=== PATIENT | female | born 1990 | race African-American/Black ===

== ENCOUNTER 2023-01-24 20:48 | Emergency (ER) | payer SELFPAY ==
[~2023-01-24] VITALS: Ht 167.6 cm; Wt 73.0 kg
[2023-01-24 20:58] VITALS: BP 136/88; PULSE 114; RESP 18; TEMP 98.4; O2SAT 98
[2023-01-25] MEDS ORDERED: MAGNESIUM/ALUMINUM HYDROXIDE/SIMETHICONE 30ML UDC PO STA (00:48)
[2023-01-25] MEDS ORDERED: ONDANSETRON 4MG ODT PO STA (00:48)
[2023-01-25] MEDS ORDERED: FAMOTIDINE 20MG TABLET PO ONE (01:00)
[2023-01-25] MEDS ORDERED: FAMOTIDINE 20MG/2ML VIAL IV ONE (03:00)
[2023-01-25] MEDS ORDERED: SODIUM CHLORIDE 0.9% 1,000 ML IV ONE (03:00)
[2023-01-25] MEDS ORDERED: LORAZEPAM 2MG/ML CPJ IV ONE (03:00)
[2023-01-25] MEDS ORDERED: ONDANSETRON HCL 4MG/2ML INJ IV ONE (03:00)
[2023-01-25 03:42] LABS: BASOPHILS % 0.7 % (0.0-2.0); EOSINOPHILS % 0.1 % (0.0-5.0); HEMATOCRIT. 32.6 % (36.0-48.0); HEMOGLOBIN. 10.9 g/dL (12.0-16.0); LYMPHOCYTES % 46.9 % (20.0-50.0); MEAN CORPUSCULAR HEMOGLOBIN 26.8 pg (28.0-32.0); MEAN CORPUSCULAR VOLUME 80.6 fL (81.0-99.0); MEAN PLATELET VOLUME 6.8 fl (7.4-10.4); MONOCYTES % 6.7 % (2.0-8.0); NEUTROPHILS % 45.6 % (40.0-76.0); PLATELET 374 x1000/uL (130-400); RED BLOOD CELL COUNT 4.05 mill/uL (4.2-5.4); RED CELL DISTRIBUTION WIDTH 16.6 % (11.6-14.6)
[2023-01-25 03:51] LABS: CHLORIDE 109 mEq/L (98-107)
[2023-01-25 04:05] LABS: HCG SCREEN NEGATIVE
[2023-01-25] MEDS ORDERED: PROT40 MT (07:01)
[2023-01-25] MEDS ORDERED: ONDA4TAB50 MT (07:01)
== END 2023-01-25 07:16 | disposition home or self-care (01) ==
LOC: ER 22:46
DX: R11.2 Nausea with vomiting, unspecified (principal); J45.909 Unspecified asthma, uncomplicated
CPT/HCPCS: 36415; 80053; 84703; 85025; 99283

== ENCOUNTER 2023-11-22 01:14 | Emergency (ER) | payer MEDICAID ==
[~2023-11-22] VITALS: Ht 162.6 cm; Wt 70.0 kg
[~2023-11-22 01:14] MED LIST: ONDA4TAB50 MT; PROT40 MT
[2023-11-22 01:24] VITALS: O2SAT 97
[2023-11-22] MEDS: ACETAMINOPHEN 325MG TABLET PO ONE (01:30)
[2023-11-22 02:41] LABS: CLARITY URINE CLEAR (CLEAR); COLOR URINE YELLOW (YELLOW); GLUCOSE URINE NEGATIVE (NEGATIVE); KETONES URINE NEGATIVE (NEGATIVE); LEUKOCYTE ESTERASE URINE NEGATIVE (NEGATIVE); NITRITE URINE NEGATIVE (NEGATIVE); OCCULT BLOOD URINE 3+ (NEGATIVE); PROTEIN URINE TRACE (NEGATIVE); SPECIFIC GRAVITY URINE 1.005 (1.005-1.030); UROBILINOGEN URINE 0.2 E.U./dL (0.2-1.0)
[2023-11-22 03:21] LABS: *AMPHETAMINES SCREEN URINE NEGATIVE (NEGATIVE); *BARBITURATES SCREEN URINE NEGATIVE (NEGATIVE); *BENZODIAZEPINES SCREEN URINE PRESUMPTIVE POSITIVE (NEGATIVE); *COCAINE SCREEN URINE NEGATIVE (NEGATIVE); CANNABINOID URINE SCREEN NEGATIVE (NEGATIVE); ECSTASY MDMA SCREEN URINE NEGATIVE (NEGATIVE); METHADONE URINE SCREEN NEGATIVE (NEGATIVE); OPIATES URINE SCREEN NEGATIVE (NEGATIVE); PHENCYCLIDINE URINE SCREEN NEGATIVE (NEGATIVE)
[2023-11-22 04:45] LABS: BASOPHILS % 0.2 % (0.0-2.0); EOSINOPHILS % 0.2 % (0.0-5.0); HEMATOCRIT. 40.1 % (36.0-48.0); HEMOGLOBIN. 13.2 g/dL (12.0-16.0); LYMPHOCYTES % 9.5 % (20.0-50.0); MEAN CORPUSCULAR HEMOGLOBIN 29.4 pg (28.0-32.0); MEAN CORPUSCULAR VOLUME 88.9 fL (81.0-99.0); MEAN PLATELET VOLUME 7.6 fl (7.4-10.4); MONOCYTES % 3.9 % (2.0-8.0); NEUTROPHILS % 86.2 % (40.0-76.0); PLATELET 371 x1000/uL (130-400); RED BLOOD CELL COUNT 4.51 mill/uL (4.2-5.4); RED CELL DISTRIBUTION WIDTH 16.4 % (11.6-14.6); WHITE BLOOD COUNT 9.3 x1000/uL (4.5-11.0)
[2023-11-22 04:50] LABS: CHLORIDE 107 mEq/L (98-107); POTASSIUM 4.4 mEq/L (3.5-5.1); SODIUM 144 mEq/L (136-145)
[2023-11-22 04:51] LABS: CALCIUM 9.7 mg/dL (8.7-10.4); CARBON DIOXIDE 25 mEq/L (21-32)
[2023-11-22 04:56] LABS: GLUCOSE 86 mg/dL (70-105); UREA NITROGEN BLOOD 7 mg/dL (9-23)
[2023-11-22 04:58] LABS: ACETAMINOPHEN < 2 ug/mL (10-30)
[2023-11-22 05:06] LABS: ETHANOL BLOOD 298 mg/dL (<10)
[2023-11-22 05:10] LABS: HCG SCREEN NEGATIVE
[2023-11-22 05:14] LABS: SQUAMOUS EPITHELIAL CELL URINE FEW /lpf (RARE/1+)
[2023-11-22 05:16] LABS: RBC URINE 0-2 /hpf (0-2); WBC URINE 0-2 /hpf (0-2)
[2023-11-22 05:17] LABS: BACTERIA URINE 1+
[2023-11-22] MEDS: LORAZEPAM 0.5MG TABLET PO NR (08:51)
[2023-11-22] MEDS ORDERED: MECL-264 PO (10:21)
[2023-11-22] MEDS ORDERED: BUDE6HFA INH (10:21)
[2023-11-22] MEDS ORDERED: NALT50TA5 PO (10:21)
[2023-11-22] MEDS ORDERED: FOLI-43 PO (10:21)
[2023-11-22] MEDS ORDERED: ALBU18HF2 PO (10:21)
[2023-11-22] MEDS: QUETIAPINE FUMARATE 25MG TABLET PO SCH (17:15)
[2023-11-22] MEDS ORDERED: QUINIDINE SULFATE 200 MG PO SCH (21:00)
[2023-11-22] MEDS: CHLORDIAZEPOXIDE 25MG CAPSULE PO NR (21:46)
[2023-11-23] MEDS: LORAZEPAM 1MG TABLET PO ONE (01:30)
[2023-11-23 11:50] VITALS: BP 108/76; PULSE 98; RESP 16; TEMP 98.7
== END 2023-11-23 12:16 ==
LOC: ER 01:14
DX: S00.83XA Contusion of other part of head, initial encounter (principal); F10.129 Alcohol abuse with intoxication, unspecified; R45.851 Suicidal ideations; F43.0 Acute stress reaction; J45.909 Unspecified asthma, uncomplicated; Z20.822 Contact with and (suspected) exposure to COVID-19; X58.XXXA Exposure to other specified factors, initial encounter; Y93.89 Activity, other specified; Y92.89 Other specified places as the place of occurrence of the external cause; Y99.8 Other external cause status
CPT/HCPCS: 80305; 80048; 81003; 80307; 80329; 80320; 84703; 85025; 36415; 70450; 99285; 87426; Z7610; G0480

== ENCOUNTER 2023-11-30 20:09 | Emergency (ER) | payer MEDICAID ==
[~2023-11-30] VITALS: Ht 162.6 cm; Wt 76.0 kg
[~2023-11-30 20:09] MED LIST changes: +ALBU18HF2 PO; +BUDE6HFA INH; +FOLI-43 PO; +MECL-264 PO; +NALT50TA5 PO; -PROT40 MT
[2023-11-30 20:24] VITALS: BP 100/73; PULSE 110; RESP 18; TEMP 98.4; O2SAT 97
== END 2023-11-30 20:20 | disposition left against medical advice (07) ==
LOC: ER 20:09
DX: F10.10 Alcohol abuse, uncomplicated (principal); Z53.21 Procedure and treatment not carried out due to patient leaving prior to being seen by health care provider; Y90.9 Presence of alcohol in blood, level not specified

== ENCOUNTER 2023-12-09 11:08 | Inpatient (IN) | payer MEDICAID ==
[~2023-12-09] VITALS: Ht 167.6 cm; Wt 72.6 kg
[2023-12-09] MEDS: DIAZEPAM 5 MG/ML 2ML SYR IV ONE (11:47)
[2023-12-09] MEDS: SODIUM CHLORIDE 0.9% 1,000 ML IV ONE ×2 (11:48→14:52)
[2023-12-09] MEDS: ONDANSETRON HCL 4MG/2ML INJ IV ONE (11:48)
[2023-12-09] MEDS: PANTOPRAZOLE SODIUM 40 MG/VIAL IV STA (11:49)
[2023-12-09 12:03] LABS: BASOPHILS % 0.6 % (0.0-2.0); EOSINOPHILS % 0.6 % (0.0-5.0); HEMATOCRIT. 35.3 % (36.0-48.0); HEMOGLOBIN. 11.8 g/dL (12.0-16.0); LYMPHOCYTES % 19.2 % (20.0-50.0); MEAN CORPUSCULAR HEMOGLOBIN 29.2 pg (28.0-32.0); MEAN CORPUSCULAR HGB CONC 33.4 g/dL (31.0-37.0); MEAN CORPUSCULAR VOLUME 87.5 fL (81.0-99.0); MEAN PLATELET VOLUME 7.7 fl (7.4-10.4); MONOCYTES % 10.8 % (2.0-8.0); NEUTROPHILS % 68.8 % (40.0-76.0); PLATELET 220 x1000/uL (130-400); RED BLOOD CELL COUNT 4.04 mill/uL (4.2-5.4); RED CELL DISTRIBUTION WIDTH 17.3 % (11.6-14.6); WHITE BLOOD COUNT 3.9 x1000/uL (4.5-11.0)
[2023-12-09 12:09] LABS: CHLORIDE 100 mEq/L (98-107)
[2023-12-09 12:10] LABS: CALCIUM 9.7 mg/dL (8.7-10.4); CARBON DIOXIDE 28 mEq/L (21-32); POTASSIUM 3.5 mEq/L (3.5-5.1); SODIUM 141 mEq/L (136-145)
[2023-12-09 12:15] LABS: CREATININE 0.8 mg/dL (0.6-1.0); ETHANOL BLOOD < 10 mg/dL (<10); GLUCOSE 93 mg/dL (70-105); UREA NITROGEN BLOOD 11 mg/dL (9-23)
[2023-12-09 12:53] LABS: PROTHROMBIN TIME 11.4 sec (9.6-11.0)
[2023-12-09] MEDS: LORAZEPAM 2MG/ML INJ IV ONE (14:24)
[2023-12-09] MEDS: ONDANSETRON HCL 4MG/2ML INJ IV NR (14:52)
[2023-12-09 16:56] LABS: CLARITY URINE TURBID (CLEAR); COLOR URINE DARK YELLOW (YELLOW); GLUCOSE URINE NEGATIVE (NEGATIVE); KETONES URINE 2+ (NEGATIVE); LEUKOCYTE ESTERASE URINE TRACE (NEGATIVE); NITRITE URINE NEGATIVE (NEGATIVE); OCCULT BLOOD URINE NEGATIVE (NEGATIVE); PROTEIN URINE 1+ (NEGATIVE); SPECIFIC GRAVITY URINE 1.028 (1.005-1.030)
[2023-12-09 17:06] LABS: *AMPHETAMINES SCREEN URINE NEGATIVE (NEGATIVE); *BARBITURATES SCREEN URINE NEGATIVE (NEGATIVE); *BENZODIAZEPINES SCREEN URINE PRESUMPTIVE POSITIVE (NEGATIVE); *COCAINE SCREEN URINE NEGATIVE (NEGATIVE); CANNABINOID URINE SCREEN NEGATIVE (NEGATIVE); ECSTASY MDMA SCREEN URINE NEGATIVE (NEGATIVE); METHADONE URINE SCREEN NEGATIVE (NEGATIVE); OPIATES URINE SCREEN NEGATIVE (NEGATIVE); PHENCYCLIDINE URINE SCREEN NEGATIVE (NEGATIVE)
[2023-12-09 17:12] LABS: BACTERIA URINE 2+
[2023-12-09 17:13] LABS: AMORPHOUS SEDIMENT URINE 2+ /lpf; RBC URINE 0-2 /hpf (0-2); SQUAMOUS EPITHELIAL CELL URINE 1+ /lpf (RARE/1+); WBC URINE 0-2 /hpf (0-2)
[2023-12-09] MEDS ORDERED: LORAZEPAM 2MG/ML INJ IV PRN (19:45)
[2023-12-09] MEDS ORDERED: CLONIDINE 0.1MG TABLET PO PRN (19:45)
[2023-12-09] MEDS ORDERED: IPRATROPIUM/ALBUTEROL 0.5-3(2.5)MG/3ML NEB HHN PRN (19:45)
[2023-12-09] MEDS ORDERED: DOCUSATE SODIUM 100MG CAPSULE PO PRN (19:45)
[2023-12-09] MEDS ORDERED: ACETAMINOPHEN 325MG TABLET PO PRN ×2 (19:45)
[2023-12-09] MEDS: CHLORDIAZEPOXIDE 25MG CAPSULE PO NR (21:38)
[2023-12-09] MEDS: LORAZEPAM 2MG/ML INJ IV PRN (21:39)
[2023-12-09 21:57] VITALS: BP 122/88; PULSE 67; RESP 19; TEMP 98.5
[2023-12-09 22:11] LABS: IRON 45 ug/dL (50-170)
[2023-12-09 22:14] LABS: TOTAL IRON BINDING CAPACITY 191 ug/dl (250-425)
[2023-12-09 22:16] LABS: T4 FREE 1.03 ng/dL (0.89-1.76); THYROID STIMULATING HORMONE 0.97 uIU/mL (0.55-4.78)
[2023-12-09 22:17] LABS: FOLIC ACID (FOLATE) SERUM > 20.00 ng/mL (>5.38); VITAMIN B12 SERUM 575 pg/mL (211-911)
[2023-12-09] MEDS: MVI, ADULT NO.1 10 ML, FOLIC ACID 1 MG, THIAMINE HCL 100 MG in SODIUM CHLORIDE 0.9% 1,0... IV NR (23:17)
[2023-12-10] MEDS: CHLORDIAZEPOXIDE 25MG CAPSULE PO NR (00:29)
[2023-12-10 00:57] LABS: CREATINE KINASE MB FRACTION < 0.5 ng/mL (0.5-3.6)
[2023-12-10 00:58] LABS: ETHANOL BLOOD < 10 mg/dL (<10); TROPONIN I HIGH SENSITIVITY < 4 ng/L (3.0-34)
[2023-12-10 04:43] VITALS: BP 126/85; PULSE 66; RESP 16; TEMP 97.8
[2023-12-10] MEDS: CHLORDIAZEPOXIDE 25MG CAPSULE PO SCH (05:50)
[2023-12-10] MEDS: PANTOPRAZOLE 40MG DR TABLET PO SCH (05:50)
[2023-12-10 06:41] LABS: CHLORIDE 104 mEq/L (98-107); POTASSIUM 2.9 mEq/L (3.5-5.1); SODIUM 137 mEq/L (136-145)
[2023-12-10 06:42] LABS: CARBON DIOXIDE 27 mEq/L (21-32)
[2023-12-10 06:43] LABS: CALCIUM 8.1 mg/dL (8.7-10.4)
[2023-12-10 06:45] LABS: HEMATOCRIT 29.9 % (36.0-48.0); HEMOGLOBIN 10.1 g/dL (12.0-16.0); MEAN CORPUSCULAR HEMOGLOBIN 29.9 pg (28.0-32.0); MEAN CORPUSCULAR HGB CONC 33.9 g/dL (31.0-37.0); PLATELET 189 x1000/uL (130-400); RED BLOOD CELL COUNT 3.39 mill/uL (4.2-5.4); RED CELL DISTRIBUTION WIDTH 17.5 % (11.6-14.6); WHITE BLOOD COUNT 3.5 x1000/uL (4.5-11.0)
[2023-12-10 06:47] LABS: CREATININE 0.8 mg/dL (0.6-1.0); GLUCOSE 80 mg/dL (70-105)
[2023-12-10 06:48] LABS: CREATINE KINASE MB FRACTION < 0.5 ng/mL (0.5-3.6); UREA NITROGEN BLOOD 10 mg/dL (9-23)
[2023-12-10 06:49] LABS: ALANINE AMINOTRANSFERASE 33 IU/L (10-49); ALBUMIN 3.5 g/dL (3.2-4.8); ASPARTATE AMINOTRANSFERASE 37 IU/L (<34)
[2023-12-10 06:50] LABS: BILIRUBIN TOTAL 0.7 mg/dL (0.1-1.0); PROTEIN TOTAL 5.9 g/dL (6.0-8.3)
[2023-12-10 07:23] LABS: TROPONIN I HIGH SENSITIVITY < 4 ng/L (3.0-34)
[2023-12-10] MEDS: ONDANSETRON HCL 4MG/2ML INJ IV PRN (07:32)
[2023-12-10 08:00] VITALS: BP 111/69; PULSE 79; RESP 18; TEMP 97.4
[2023-12-10] MEDS: POTASSIUM CHLORIDE 20MEQ TABLET SR PO NR (09:49)
[2023-12-10 11:33] LABS: PHOSPHORUS 3.2 mg/dL (2.5-4.9)
[2023-12-10 12:00] VITALS: BP 124/86; PULSE 76; RESP 18; TEMP 98.2
[2023-12-10 14:53] VITALS: BP 124/86; PULSE 76; TEMP 98.2; O2SAT 98
[2023-12-11] MEDS ORDERED: CHLORDIAZEPOXIDE 25MG CAPSULE PO SCH (02:00)
== END 2023-12-10 15:00 | disposition home or self-care (01) | DRG 58 ==
LOC: ER 11:08 → EDBEDREQ 14:41 → 5WST 17:31 → EDBEDREQTM 17:33 → EDBEDREQ 17:33 → 7EST 21:38
PROVIDERS: ADMIT Internal Medicine; ATTEND Internal Medicine
DX: R25.1 Tremor, unspecified (principal); D64.9 Anemia, unspecified; F10.239 Alcohol dependence with withdrawal, unspecified; F17.200 Nicotine dependence, unspecified, uncomplicated; J45.909 Unspecified asthma, uncomplicated; Z56.0 Unemployment, unspecified; Z79.51 Long term (current) use of inhaled steroids; Z88.8 Allergy status to other drugs, medicaments and biological substances; Z79.899 Other long term (current) drug therapy
CPT/HCPCS: 36415; 80048; 80053; 80305; 80320; 81003; 82553; 82607; 82746; 83540; 83550; 83735; 84100; 84439; 84443; 84484; 85025; 85027; 93970; 99291; C9113; J2060; J2405; J3411; J3490; J7030; G0480

== ENCOUNTER 2024-01-29 22:31 | Emergency (ER) | payer MEDICAID ==
[~2024-01-29] VITALS: Ht 170.2 cm; Wt 78.0 kg
[2024-01-29 22:38] VITALS: O2SAT 100
[2024-01-29 23:35] LABS: EOSINOPHILS % 1.4 % (0.0-5.0); HEMOGLOBIN. 11.3 g/dL (12.0-16.0); LYMPHOCYTES % 39.7 % (20.0-50.0); MEAN CORPUSCULAR HGB CONC 32.2 g/dL (31.0-37.0); MEAN CORPUSCULAR VOLUME 93.1 fL (81.0-99.0); MEAN PLATELET VOLUME 7.2 fl (7.4-10.4); MONOCYTES % 12.3 % (2.0-8.0); NEUTROPHILS % 45.6 % (40.0-76.0); PLATELET 313 x1000/uL (130-400); RED BLOOD CELL COUNT 3.76 mill/uL (4.2-5.4); RED CELL DISTRIBUTION WIDTH 21.2 % (11.6-14.6); WHITE BLOOD COUNT 4.8 x1000/uL (4.5-11.0)
[2024-01-29 23:42] LABS: CHLORIDE 105 mEq/L (98-107); POTASSIUM 3.9 mEq/L (3.5-5.1); SODIUM 137 mEq/L (136-145)
[2024-01-29 23:43] LABS: CALCIUM 9.8 mg/dL (8.7-10.4); CARBON DIOXIDE 22 mEq/L (21-32)
[2024-01-29 23:48] LABS: CREATININE 0.9 mg/dL (0.6-1.0); GLUCOSE 80 mg/dL (70-105); UREA NITROGEN BLOOD 9 mg/dL (9-23)
[2024-01-29] MEDS: CHLORDIAZEPOXIDE 25MG CAPSULE PO ONE (23:48)
[2024-01-29 23:50] LABS: AMMONIA < 17 uMol/L (<32)
[2024-01-29 23:53] LABS: ETHANOL BLOOD < 10 mg/dL (<10)
[2024-01-30 00:01] VITALS: TEMP 97.7
[2024-01-30] MEDS: SODIUM CHLORIDE 0.9% 1,000 ML IV ONE (00:35)
[2024-01-30 04:25] VITALS: BP 119/83; PULSE 71; RESP 14
== END 2024-01-30 04:52 | disposition home or self-care (01) ==
LOC: ER 22:31
DX: R56.9 Unspecified convulsions (principal); J45.909 Unspecified asthma, uncomplicated; Z79.899 Other long term (current) drug therapy
CPT/HCPCS: 80048; 80320; 82140; 85025; 36415; 99285; 96360; 96361; J7030; G0480